=== PATIENT | female | born 1970 | race Caucasian/White ===

== ENCOUNTER 2017-09-17 10:40 | Observation (INO) | payer BC, OTHER ==
[2017-09-17 12:11] LABS: ABS Basophils 0 10^3/ul (0-0.2); ABS Eosinophils 0.1 10^3/ul (0-0.6); ABS Lymphocytes 1.7 10^3/ul (1.0-4.8); ABS Monocytes 0.4 10^3/ul (0-0.8); ABS Neutrophils 3.5 10^3/ul (1.5-7.7); ABS Nucleated RBC 0 10^3/ul; Eosinophil % 1.1 % (0-6); Hematocrit 41 % (35-47); Hemoglobin 14.2 g/dl (12.0-16.0); Mean Corpuscular HGB Conc 35 g/dl (31-36); Mean Corpuscular Hemoglobin 29 pg (27-31); Mean Corpuscular Volume 82 fL (80-97); Mean Platelet Volume 7 um3 (7.4-10.4); Nucleated Red Blood Cells % 0.5; Platelet Count 224 10^3/ul (150-450); Red Blood Count 4.98 10^6/ul (4.0-5.4); Red Cell Distribution Width 14 % (10.5-15); White Blood Count 5.7 10^3/ul (3.5-10.8)
[2017-09-17] MEDS ORDERED: Metoclopramide IV* 5 MG/ML 2 ML VIAL IV ONE (12:17)
--- NOTE | 2017-09-17 12:19 | RAD ---
INDICATION: Chest pain. COMPARISON: There are no prior studies available for comparison. TECHNIQUE: A portable view of the chest was obtained. FINDINGS: Cardiac and mediastinal contours appear to be within normal limits. The lungs are clear. No pleural effusion is seen. IMPRESSION: NO EVIDENCE FOR ACUTE DISEASE.
[2017-09-17] MEDS ORDERED: Magnesium Hydroxide LIQ* 30 ML UDC PO PRN (14:56)
[2017-09-17] MEDS ORDERED: Al Hydrox/Mg Hydrox/Simet LIQ* 30 ML UDC PO PRN (14:56)
[2017-09-17] MEDS ORDERED: Acetaminophen TAB* 325 MG PO PRN (16:07)
--- NOTE | 2017-09-17 23:29 | HP ---
CC: Dr. Jay; Dr. Plascencia * HISTORY AND PHYSICAL: DATE OF ADMISSION: 09/17/17 PROVIDER: Harriet Judge NP PRIMARY CARE PROVIDER: Dr. Jay. ATTENDING PHYSICIAN WHILE IN THE HOSPITAL: Dr. Binta Ibrahim * (dictated by Harriet Judge NP) CHIEF COMPLAINT: Chest pain. HISTORY OF PRESENT ILLNESS: Ms. Zhu is a 46-year-old female that presented to the emergency room today after developing chest pain and nausea while exercising. She states that she was sweating at that time, but contributes that to she was currently exercising. She states that she normally exercises on the elliptical machine for approximately 30 minutes and she states that today she exercised for 15 minutes and developed some chest pain and some nausea and was unable to complete her normal routine on the elliptical. She states that instead of reaching her maximum level of exercise she had to slow the elliptical down. She did proceed to continue to exercise on the elliptical , though she was having chest pain. She states that after stopping exercising, she went and stretched, continued to have chest pain and nausea. She drove herself home and continued to have chest pain and nausea. She denied any diaphoresis at that time. She denied any dizziness. She then called her friend , who told her to go to [facility]. She presented to [facility] and was instructed to come to the emergency room. She had a friend bring her to the emergency room for evaluation of her chest pain. She does report that she has a history of chronic palpitations for which she takes flecainide. She also reports that approximately 5 to 6 years ago when she was living in [place] , she had a stress echo that was negative at that time. Due to unrelieved chest pain, she came to the emergency room and while she was in the emergency room, her chest pain and nausea did subside. She also reports that she has had increased amount of stress in her life. Her mom this past December and her father in June. She also is attempting to sell their home at this time and states that it has been very stressful for her. PAST MEDICAL HISTORY: Significant for depression. PAST SURGICAL HISTORY: Significant for: 1. Right ACL repair. 2. Right knee surgery x4. 3. Left ankle reconstruction and then left ankle debridement. 4. Right hip, she had a labral tear repair. MEDICATIONS: Current home medications: 1. Flecainide 100 mg daily. 2. Prozac. 3. Aleve p.r.n. She reports taking that 4 to 5 times a week for joint pain. ALLERGIES TO MEDICATIONS: No known drug allergies. FAMILY HISTORY: Mother had silent MIs at age 49 and 51. She also had hypertension. She had a hemorrhagic stroke in December which she from. Her father with a history of diabetes that was medication induced from long- term steroid use. SOCIAL HISTORY: The patient does not smoke. She consumes 2 drinks weekly. She denies any drug use. She is a current professor at [employer]. She is not . She has no children. Surrogate decision maker in the event she is unable to make her own decisions in her sister, Krista Pagan, her phone number is [phone]. REVIEW OF SYSTEMS: There is no documented fever. There has been no significant weight change. She has had no double vision, no rhinorrhea. No ear discharge. She denies any sore throat, denies any thyroid enlargement, Reports chest pain that has subsided. No orthopnea. No nocturnal dyspnea. There was no abdominal pain. She did report some nausea. No vomiting. She denies any urinary frequency or urgency. Denies any hematuria. There was no seizures. No loss of consciousness. No skin ulcerations or pruritus. Review of 14 systems was completed, all others were negative. PHYSICAL EXAMINATION GENERAL: At this time, Ms. Zhu is a 46-year-old female that appears healthy and well. She is sitting on a stretcher in the emergency room. She does not appear to be in any acute distress. VITAL SIGNS: Temperature was 98.3, heart rate was sinus rhythm at a rate of 58 , respiratory rate was 16, O2 saturation was 100% on room air, and blood pressure was 113/62. HEENT: Head is atraumatic, normocephalic. Eyes: EOMs are intact. Sclerae anicteric and not pale. Oral mucosa appears to be moist. No oropharyngeal erythema. NECK: Supple. Trachea is midline. LUNGS: Clear to auscultation bilaterally. No wheezes, rales, or rhonchi. CARDIAC: S1, S2. Regular rate and rhythm. No murmurs, rubs, or gallops. ABDOMEN: Soft and nontender. Bowel sounds are present x4. EXTREMITIES: Pulses are +2 throughout and she is able to move all extremities with 5/5 strength. NEUROLOGIC: She is awake, she is alert and oriented x3. Speech is clear. There are no focal deficits. SKIN: Intact. DIAGNOSTIC AND LABORATORY DATA: WBC is 5.7, hemoglobin 14.2, hematocrit was 41 , platelet count was 224, APTT was 30.9. Sodium 136, potassium 3.9, chloride 106, carbon dioxide 24, anion gap was 6, BUN was 15, creatinine 0.85, lactic acid was 0.7, calcium 9.4, mag was 1.9. Troponin was 0.00 and repeat troponin was also 0.00. BNP was 23. TSH was 1.6. EKG today showed sinus bradycardia at a rate of 58. Chest x-ray: Radiologist impression: No evidence for acute disease. ASSESSMENT AND PLAN: Ms. Zhu is a 46-year-old female that presented to the emergency room today with complaints of chest pain while exercising. We were asked to evaluate her due to her chest pain and strong family history of cardiac disease. She will be admitted under observation for: 1. Chest pain. She will be monitored on telemetry and will be ruled out for myocardial ischemia with a nuclear stress test in the a.m. We will continue to trend her troponins x1 more. I will place her on aspirin 325 mg p.o. daily. We will continue her flecainide 100 mg p.o. daily. Her chest x-ray was clear. Her TOMMY score is 0 which put her at low risk but given her family history it seem resonable to proceed with a stress tests to rule cardiac related issues. 2. Palpitations. She has long-term history of palpitations. We will continue her on flecainide 100 mg p.o. daily. She will receive this prior to her stress test tomorrow morning. 3. Depression. At this time is stable. We will continue her on her Prozac daily. 4. DVT prophylaxis. She will be up ad lizzy ambulating. 5. Fluids, electrolytes, and nutrition. She can have a heart-healthy diet. 6. Code status. She is a full code. TIME SPENT: Time spent on this admission was approximately 60 minutes, greater than half that time was spent [id number] with the patient obtaining history and physical and other half the time going over the plan of care with the patient and implementing that plan of care. I have discussed this plan with my attending, Dr. Binta Ibrahim, and she is in agreement with my plan. HARRIET JUDGE, MELISSA [id number]/[facility] #: [id number] YESSENIA
[2017-09-18 05:06] LABS: ABS Basophils 0 10^3/ul (0-0.2); ABS Eosinophils 0.1 10^3/ul (0-0.6); ABS Monocytes 0.5 10^3/ul (0-0.8); ABS Neutrophils 2.7 10^3/ul (1.5-7.7); ABS Nucleated RBC 0 10^3/ul; Eosinophil % 2.3 % (0-6); Hematocrit 40 % (35-47); Hemoglobin 13.5 g/dl (12.0-16.0); Lymphocyte % 37.5 % (25-47); Mean Corpuscular HGB Conc 34 g/dl (31-36); Mean Corpuscular Hemoglobin 28 pg (27-31); Mean Corpuscular Volume 82 fL (80-97); Mean Platelet Volume 7 um3 (7.4-10.4); Nucleated Red Blood Cells % 0.1; Platelet Count 204 10^3/ul (150-450); Red Cell Distribution Width 13 % (10.5-15); White Blood Count 5.4 10^3/ul (3.5-10.8)
[2017-09-18 05:20] LABS: EGFR Non-African American 66.6 (>60)
[2017-09-18] MEDS ORDERED: Flecainide TAB* 100 MG PO SCH (09:00)
[2017-09-18] MEDS ORDERED: FLUoxetine CAP* 10 MG PO SCH (09:00)
[2017-09-18] MEDS ORDERED: Aspirin EC TAB* 325 MG PO SCH (09:00)
--- NOTE | 2017-09-18 10:52 | RAD ---
HISTORY: Chest pain COMPARISONS: None TECHNIQUE: A 1 day stress/rest myocardial perfusion study was performed, with exercise stress. The exercise portion was performed using the Will protocol, for a total METs of 10.1. The stress portion was monitored by Dr. Gleason. Gated SPECT imaging was performed, with CT-based attenuation correction DOSE: Stress: Technetium 99m tetrofosmin, 25.6 millicuries, injected at 9:55 AM on September 18, 2017 Rest: Technetium 99m tetrofosmin, 10.15 millicuries, injected at 6:50 AM on September 18, 2017 Pharmacologic agent: None FINDINGS: CARDIAC MONITORING: Peak heart rate of 1 50 bpm, 86% of predicted EF: 74% TID: 1.07 MOTION: Normal motion, with normal wall thickening. PERFUSION: There is hypoperfusion of the inferior wall that resolves with attenuation correction and is felt to be artifactual. There are no definite fixed or reversible perfusion defects. OTHER: None IMPRESSION: NO DEFINITE FIXED OR REVERSIBLE PERFUSION DEFECTS. ASSESSMENT: LOW RISK. Based on imaging criteria from ACC/AHA 2002. Guideline Update for the Management of Patient's with Chronic Stable Angina, table 23. Noninvasive Risk Stratification. CPT II Codes: 7866M5J
--- NOTE | 2017-09-18 12:28 | PN ---
Subjective Date of Service: 09/18/17 Interval History: No complaints this AM. Denies chest pain or shortness of breath. Denies n/v/d or abd pain. Family History: Unchanged from Admission Social History: Unchanged from Admission Past Medical History: Unchanged from Admission Objective Active Medications: Acetaminophen (Tylenol Tab*) 650 mg PO Q4H PRN PRN Reason: FEVER/PAIN Al Hydrox/Mg Hydrox/Simethicone (Maalox Plus*) 30 ml PO Q6H PRN PRN Reason: INDIGESTION Aspirin (Ecotrin Ec Tab*) 325 mg PO DAILY [facility] Last Admin: 09/18/17 10:48 Dose: 325 mg Flecainide Acetate (Tambocor Tab*) 100 mg PO DAILY [facility] Last Admin: 09/18/17 10:49 Dose: 100 mg Fluoxetine HCl (Prozac Cap*) 10 mg PO DAILY [facility] Last Admin: 09/18/17 10:49 Dose: 10 mg Magnesium Hydroxide (Milk Of Magnesia Liq*) 30 ml PO Q4H PRN PRN Reason: CONSTIPATION Vital Signs - 8 hr 09/18/17 09/18/17 07:50 10:59 Temperature 98.3 F 97.7 F Pulse Rate 51 65 Respiratory 15 16 Rate Blood Pressure 100/49 114/58 (mmHg) O2 Sat by Pulse 98 100 Oximetry Oxygen Devices in Use Now: None Appearance: appers comfortable lying in the bed Eyes: No Scleral Icterus Ears/Nose/Mouth/Throat: Mucous Membranes Moist Neck: NL Appearance and Movements; NL JVP, Trachea Midline Respiratory: Symmetrical Chest Expansion and Respiratory Effort, Clear to Auscultation Cardiovascular: NL Sounds; No Murmurs; No JVD, RRR, No Edema Abdominal: NL Sounds; No Tenderness; No Distention Extremities: No Edema, No Clubbing, Cyanosis Skin: No Rash or Ulcers Neurological: Alert and Oriented x 3, NL Gait, NL Muscle Strength and Tone Nutrition: Taking PO's Result Diagrams: 09/18/17 04:37 09/18/17 04:37 Assess/Plan/Problems-Billing Assessment: Ms. Zhu is a 46 y.o female who developed chest pain while exercising yesterday that was unrelieved with rest. Admitted for nuclear stress. - Patient Problems (1) Chest pain Status: Acute Code(s): R07.9 - CHEST PAIN, UNSPECIFIED SNOMED Code(s): 39774720 Comment: No further chest pain ~ nuclear stress was Low risk ~ troponin remain negative ~ will discharge home, follow up with communication coordinator~ call for appointment (2) Depression Status: Acute Code(s): F32.9 - MAJOR DEPRESSIVE DISORDER, SINGLE EPISODE, UNSPECIFIED SNOMED Code(s): 30980757 Comment: stable~ continue prozac (3) Palpitations Status: Acute Code(s): R00.2 - PALPITATIONS SNOMED Code(s): 39218489 Comment: stable ~ continue flecinide Status and Disposition: discharge home
[2017-09-18 13:39] VITALS: BP 108/55
--- NOTE | 2017-09-18 16:15 | ED ---
Dre Orosco Angela, scribed for Shaan Marvin MD on 09/17/17 at 1104 . HPI Chest Pain - HPI Summary HPI Summary: This pt is a 46 y/o female presenting to [facility] referred by [facility] c/ o mid sternum chest pain since this morning s/p exercise today. Pt reports she was exercising on an elliptical and 15 minutes into her exercise she developed chest pain. She describes mid sternum chest pain as tightness and pressure, as if something is sitting on top of her chest. Her chest pain is aggravated when standing up. Her pain is alleviated with lying down. Pt additionally notes nausea and lightheadedness. Denies SOB, vomiting, LE swelling. Pt states she has felt nauseous ever since this morning. She reports she normally runs and exercises without difficulty. 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 Her last stress test was a while ago. - History of Current Complaint Chief Complaint: EDChestPainROMI Time Seen by Provider: 09/17/17 10:56 Hx Obtained From: Patient Onset/Duration: Started Hours Ago, Still Present Timing: Lasting Hours Current Severity: Moderate Pain Intensity: 4 Pain Scale Used: 0-10 Numeric Chest Pain Location: Mid Sternal Chest Pain Radiates: No Character: Pressure/Squeezing - Pressure, Tightness Aggravating Factor(s): Other: - standing up Alleviating Factor(s): Other: - lying down Associated Signs and Symptoms: Positive: Chest Pain, Lightheadedness, Nausea. Negative: Shortness of Breath, Calf Pain/Swelling, Vomiting - Allergy/Home Medications Allergies/Adverse Reactions: Allergies Allergy/AdvReac Type Severity Reaction Status Date / Time No Known Allergies Allergy Verified 09/17/17 10:44 Home Medications: Home Medications FLUoxetine CAP* [PROzac CAP*] 10 mg PO DAILY 09/17/17 [History Confirmed ] Flecainide TAB(NF) 100 mg PO DAILY 09/17/17 [History Confirmed 09/17/17] PMH/Surg Hx/FS Hx/Imm Hx Endocrine/Hematology History: Denies: Hx Diabetes Cardiovascular History: Denies: Hx Hypertension, Hx Pacemaker/ICD History: Denies: Hx Renal Disease Sensory History: Denies: Hx Hearing Aid Psychiatric History: Denies: Hx Panic Disorder - Cancer History Hx Chemotherapy: No Hx Radiation Therapy: No - Surgical History Surgery Procedure, Year, and Place: ACL REPAIR RT -SCREWS, 3 SCOPES ON RT KNEE, LT ANKLE RECONSTRUCTION, LT ANKLE SCOPE Infectious Disease History: No Infectious Disease History: Denies: Traveled Outside the [place] in Last 30 Days - Family History Known Family History: Negative: Hypertension, Diabetes - Social History Alcohol Use: None Substance Use Type: Reports: None Smoking Status (MU): Never Smoked Tobacco Review of Systems Negative: Fever, Chills Positive: Chest Pain Negative: Shortness Of Breath Positive: Nausea. Negative: Vomiting Negative: Edema - LE Skin: Negative Neurological: Negative All Other Systems Reviewed And Are Negative: Yes Physical Exam - Summary Physical Exam Summary: VITAL SIGNS: Reviewed. GENERAL: Patient is a well-developed and nourished female who is lying comfortable in the stretcher. Patient is not in any acute respiratory distress. HEAD AND FACE: No signs of trauma. No ecchymosis, hematomas or skull depressions. No sinus tenderness. EYES: PERRLA, EOMI x 2, No injected conjunctiva, no nystagmus. EARS: Hearing grossly intact. Ear canals and tympanic membranes are within normal limits. MOUTH: Oropharynx within normal limits. NECK: Supple, trachea is midline, no adenopathy, no JVD, no carotid bruit, no c- spine tenderness, neck with full ROM. CHEST: Symmetric, no tenderness at palpation LUNGS: Clear to auscultation bilaterally. No wheezing or crackles. CVS: Regular rate and rhythm, S1 and S2 present, no murmurs or gallops appreciated. ABDOMEN: Soft, non-tender. No signs of distention. No rebound no guarding, and no masses palpated. Bowel sounds are normal. EXTREMITIES: FROM in all major joints, no edema, no cyanosis or clubbing. NEURO: Alert and oriented x 3. No acute neurological deficits. Speech is normal and follows commands. SKIN: Dry and warm Triage Information Reviewed: Yes Vital Signs On Initial Exam: Initial Vitals Temp Pulse Resp BP Pulse Ox 97.7 F 57 16 121/62 99 09/17/17 10:44 09/17/17 10:44 09/17/17 10:44 09/17/17 10:44 09/17/17 10:44 Vital Signs Reviewed: Yes Diagnostics - Vital Signs Vital Signs Temp Pulse Resp BP Pulse Ox 09/17/17 10:44 97.7 F 57 16 121/62 99 - Laboratory Result Diagrams: 09/17/17 11:43 09/17/17 11:43 Lab Statement: Any lab studies that have been ordered have been reviewed, and results considered in the medical decision making process. - Radiology Chest XR Xray Interpretation: No Acute Changes - IMPRESSION: No evidence for acute disease. Dr. Marvin has reviewed this radiology report. Radiology Interpretation Completed By: Radiologist - EKG 10:48 Cardiac Rate: Bradycardia EKG Rhythm: Sinus Bradycardia - at 58 bpm EKG Interpretation: No ST elevation. Chest Pain Course/Dx - Course Assessment/Plan: This pt is a 46 y/o female presenting to [facility] referred by [facility] c/o mid sternum chest pain since this morning s/p exercise today. Pt reports she was exercising on an elliptical and 15 minutes into her exercise she developed chest pain. She describes mid sternum chest pain as tightness and pressure, as if something is sitting on top of her chest. Her chest pain is aggravated when standing up. Her pain is alleviated with lying down. Pt additionally notes nausea and lightheadedness. Denies SOB, vomiting, LE swelling. Pt states she has felt nauseous ever since this morning. She reports she normally runs and exercises without difficulty. Test results without significant abnormalities. Two troponins, 4 hours apart, are both 0.00. EKG shows no ST elevations. I discussed the case with Dr. Plascencia who recommends the pt to be admitted for further work up and management. Therefore, I discussed with Dr. Ibrahim, hospitalist, who accepted the pt for admission. Pt is hemodynamically stable, alert and oriented x3. - Diagnoses Provider Diagnoses: Chest pain - Provider Notifications Discussed Care Of Patient With: Neli Plascencia Time Discussed With Above Provider: 14:30 Instructed by Provider To: Other - I discussed the case with Dr. Plascencia who recommends to admit the pt for further work up and management. [14:40] I discussed pt care with Dr. Ibrahim, hospitalist, who has agreed to admit the pt. Discharge - Discharge Plan Condition: Stable Disposition: ADMITTED TO [facility] The documentation as recorded by the Dre alegria Angela accurately reflects the service I personally performed and the decisions made by , Shaan Marvin MD.
--- NOTE | 2017-09-27 16:54 | DS ---
DISCHARGE SUMMARY: DATE OF ADMISSION: 09/17/17 DATE OF DISCHARGE: 09/18/17 ATTENDING PHYSICIAN: (dictated by Darian Judge NP) PRIMARY CARE PROVIDER: Dr. Tran Jay. PRIMARY DIAGNOSIS: Chest pain. SECONDARY DIAGNOSIS: Depression. STUDIES COMPLETED WHILE IN THE HOSPITAL: She had a chest x-ray on 09/17/17. Radiologist's impression : No evidence of acute disease. She had an electrocardiogram on 09/17/17 which showed sinus bradycardia at a rate of 58. She had a nuclear stress test on 09/18/17. Radiologist's impression: No definite fixed or reversibl e perfusion defects. Assessment: Low risk based on imaging criteria from ACC and AHA 2002 guideline update for management of patients with chronic stable angina, table 23, noninvasive risk stratificat ion. DISCHARGE MEDICATIONS: No new medications. Continued home medications: 1. Prozac 10 mg p.o. daily. 2. Flecainide 100 mg p.o. daily. HISTORY OF PRESENT ILLNESS AND HOSPITAL COURSE: Ms. Zhu is a 46-year-old female that presented to the emergency room after developing chest pain with nausea while exercising. She states that she was unable to perform her daily exercise routine due to the chest pain. She reported that the chest pain did not subside at the conclusion of exercising, so she came to the emergency room for further evaluation of her chest pain. While in the emergency room, she had routine lab work drawn. Her troponins were negative at 0.00 x3. Her BNP was 23. Her potassium was 3.9, magnesium was 1.9. TSH was 1.60. We were asked by the [facility] physician to evaluate her for admission for chest pain, rule out HI. While in the hospital, she was placed on a hospital monitor and had a nuclear stress test that radio logist's impression was low risk. She has had no further chest pain during her hospitalization. At this time, Ms. Zhu is stable for discharge home. Ms. Zhu will be discharged home today. Vital signs are as follows: Blood pressure was 108/55, heart rate was 61, respirations were 16, oxygen was 98% on room air, temp was 97.1. DISCHARGE PLAN: 1. Ms. Zhu will be discharged back home. 2. Activity: As tolerated. 3. Continue heart-healthy diet. 4. Follow up with her primary care in 4 to 7 days. 5. For her depression, continue Prozac as prescribed. 6. For her palpitations, continue flecainide as prescribed. Ms. Zhu was instructed to return to the emergency room for any chest pain or shortness of breat h. This is a summarized report of her hospitalization. For further details, please see the entire medic al record. TIME SPENT: Time spent on this discharge was approximately 45 minutes, greater than half the time wa s spent with the patient discussing discharge plans and instructions. CONDITION AT DISCHARGE: Stable. DARIAN JUDGE, MELISSA [id number]/[facility] #: [id number]
== END 2017-09-18 13:10 | disposition home or self-care (01) ==
LOC: ED 10:40 → MEDTELE 14:52
PROVIDERS: ADMIT Internal Medicine; ATTEND Internal Medicine
DX: R07.9 Chest pain, unspecified (principal); R11.0 Nausea; F32.9 Major depressive disorder, single episode, unspecified; Z98.890 Other specified postprocedural states; R42 Dizziness and giddiness
CPT/HCPCS: 36415; 71045; 78452; 80048; 80053; 80061; 82550; 82553; 83605; 83735; 83880; 84443; 84484; 85025; 85730; 93005; 93017; 99284; A9270-GY; A9502; G0378; J2765